=== PATIENT | female | born 1975 | race Caucasian/White ===

== ENCOUNTER 2016-07-14 01:51 | Emergency (ER) | payer BC ==
[~2016-07-14 01:51] MED LIST: ALPRAZOLAM0.5 MG PO; ATENOLOL100 MG PO; HYCET1 ML PO; OMEPRAZOLE20 M1 PO; ZOLOFT100 MG PO
--- NOTE | 2016-07-14 03:47 | ED CLINICAL REPORT ---
Clinical Report - Physicians/Mid Levels [facility] [address] [place] [address] 07/14/2016 1:50 Patient: SUELLEN PULIDO Time Seen: 0212. Arrived- By private vehicle. Historian- patient. HISTORY OF PRESENT ILLNESS Chief Complaint: SKIN RASH. This started today and is still present and worsening. It was abrupt in onset and has been constant but is not gone now. It is described as itchy. It has been generalized in location. No cause has been identified. No recent medication. (hx of breast cancer. being treated with chemo. oncologist is Dr. De Santiago. 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 reports having rash several days afterwards. does not appear to be vescicular.). Similar symptoms previously: None. Recent medical care: Not recently seen/assessed. REVIEW OF SYSTEMS No fever, difficulty breathing, eye irritation, chest pain or abdominal pain. No nausea or vomiting. All systems otherwise negative, except as recorded above. PAST HISTORY See nurses notes. Tetanus immunization status is up-to-date. SOCIAL HISTORY Never smoker. No alcohol use or drug use. No recent travel. Is a local resident. ADDITIONAL NOTES The nursing notes have been reviewed. PHYSICAL EXAM Vital Signs: 07/14/2016 01:56 BP: 143/77. HR: 67. RR: 16. O2 saturation: 98%. Temp: 98.3 F. Pain level now: 0/10. Oxygen saturation normal. Appearance: Alert. Oriented X3. No acute distress. Eyes: Pupils equal, round and reactive to light. Conjunctivae and eyelids normal. ENT: Ears normal. Nose normal. Pharynx normal. Neck: Neck supple. CVS: Normal heart rate and rhythm. Heart sounds normal. Respiratory: No respiratory distress. Breath sounds normal. Chest nontender. Abdomen: Nontender. No organomegaly. Skin: (maculopapular rash with poorly demarcated edges and no vesicles located primarily on the scalp and generally thins out distally. They're blanchable. Appear to be lessening at the scalp. No satellite lesions. No involvement of mucous membranes her palms and soles.). Extremities: Normal external inspection. Extremities nontender. LABS, X-RAYS, AND EKG Laboratory Tests: CBC w Diff: (MILI: 07/14/2016 02:10) ( MsgRcvd 07/14/2016 03:19) Final results Test Result Flag Units (Reference) WHITE BLOOD COUNT 31.0 *H K/uL (4.5-11.5) CRITICAL RESULTS CALLEDCalled to RAJ 07/14/16 0235Were 2 patient identifiers used? YWas the result read back? Y RED BLOOD COUNT 4.25 M/uL (4.00-5.20) HEMOGLOBIN 10.2 L gm/dL (12.0-16.0) HEMATOCRIT 31.2 L % (36.0-46.0) MEAN CELL VOLUME 74 L fL (80-100) MEAN CORPUSCULAR HGB 24 L pg (26-34) MEAN CORPUSCULAR HGB CONC 33 g/dL (31-37) RED CELL DISTRIBUTION WIDTH 35.4 H % (11.6-14.8) PLATELET COUNT 171 K/uL (150-400) POLY % 66 % (50-75) BAND % 18 H % (0-8) LYMPH 13 L % (25-40) MONO 3 % (3-14) EOSINOPHIL % 0 % (0-4) BASOPHIL % 0 % (0-2) METAMYELOCYTE % 0 % (0-1) MYELOCYTE 0 % (0-1) OTHER CELL TYPE 0 RBC MORPHOLOGY 2+ ANISOCYTOSIS PT with INR: (MILI: 07/14/2016 02:10) ( PagRcvd 07/14/2016 02:40) Final results Test Result Flag Units (Reference) INR 1.0 (0.8-1.2) Low Intensity Therapy: INR 1.5-2.0 PT range 18.5-23.1Mod.Intensity Therapy: INR 2.0-3.0 PT range 23.1-31.5High Intensity Therapy: INR 2.5-3.5 PT range 27.4-35.5High Intensity Therapy 2: INR 3.0-4.0 PT range 31.5-39.3 APTT 27 SECONDS (24-34) CMP: (MILI: 07/14/2016 02:10) ( MsgRcvd 07/14/2016 02:45) Final results Test Result Flag Units (Reference) GLUCOSE 104 mg/dL (70-110) BUN 11 mg/dL (7-18) CREATININE 0.9 mg/dL (0.6-1.3) Estimated GFR >60 mL/min Estimated GFR- >60 mL/min Note: Persistent reduction over 3 months in eGFR<60 mL/min/1.73 m2 defines CKD. Patients with eGFR values>=60 mL/min/1.73 m2 may also have CKD if evidence ofpersistent proteinuria. Additional information may be foundat www.kidney.org. SODIUM 144 mmol/L (136-145) POTASSIUM 3.5 mmol/L (3.5-5.1) CHLORIDE 107 mmol/L (98-107) CARBON DIOXIDE 25 mmol/L (21-32) CALCIUM 9.0 mg/dL (8.5-10.1) TOTAL PROTEIN 6.4 g/dL (6.4-8.2) ALBUMIN 3.5 g/dL (3.3-5.0) BILIRUBIN, TOTAL 0.5 mg/dL (0.0-1.0) ALKALINE PHOSPHATASE 142 H U/L (46-116) AST (SGOT) 26 U/L (15-37) ALT (SGPT) 36 U/L (12-78) . PROGRESS AND PROCEDURES Course of Care: he patient is a pleasant 40-year-old female presenting for evaluation of rash. Patient with recent exposure to shingles as well as history of recent treatment with chemotherapy for breast cancer. Because the patient's past medical history of breast cancer and being on immunosuppressive agents, would be concerned for potential opportunistic type of infection particularly with the exposure to shingles. Laboratory studies will be ordered for evaluation of any potential metabolic derangements from chemotherapy or related abnormalityfrom the rash. Patient is agreeable to the treatment plan. Hydroxyzine has been ordered for the patient's itching. Appears to be allergic in nature. Less concern for shingles based on the description of the rash. The patient's workup was remarkable for the findings above. Patient with improved hemoglobin and hematocrit based on prior hemoglobins and hematocrits. Patient white blood count noted to be 31. Patient on Neupogen and likely the result of the Neupogen. Consult was placed to patient's oncologist. Had discussion with the patient's oncologist in regards to the patient's rash here in the emergency department and potential etiologies for the rash. We had decided that the benefits outweighed outweigh the risks for treating with acyclovir or valacyclovir for potential herpes zoster. Patient is agreeable to treatment plan. Also had a discussion with patient and possible allergic-type reaction to recent exposures of medications or allergens. No signs of anaphylaxis at this time. Patient has been otherwise appropriate while here in the emergency department. Symptoms had slightly improved while here. Patient continues to be nontoxic and in no acute distress. Discussed with patient her workup here in the emergency department included home care, follow-up, and return precautions. All questions have been answered. The patient expressed understanding of these instructions and was agreeable to them. Valacyclovir has been ordered in place of acyclovir as the dosing is less frequent and will likely result in better patient compliance. Consult obtained from oncology. Dr. De Santiago. Disposition: Discharged. Condition: good. CLINICAL IMPRESSION 07/14/2016 01:56 BP: 143/77. HR: 67. RR: 16. O2 saturation: 98%. Temp: 98.3 F. Pain level now: 0/10. Blood pressure normal. Oxygen saturation normal. Chicken pox (acute). INSTRUCTIONS Warnings: GENERAL WARNINGS: Return or contact your physician immediately if your condition worsens or changes unexpectedly, if not improving as expected, or if other problems arise. Specifically return if pain, vomiting, bleeding, breathing difficulty or fever. Your Current Medications: CONTINUE TAKING THE FOLLOWING MEDICATIONS: Atenolol Oral. Omeprazole Oral. Zoloft Oral. Prescription Medications: Valtrex 1000 mg: take 1 tab orally every 8 hours for 10 days. No refills. Substitution is permissible. (Disp 30 each) Hydroxyzine 50 mg: take 1 orally every 8 hours as needed for itching. Dispense thirty (30). No refill. Follow-up: Return to the emergency department as needed. Follow up with an oncologist in one week. Reason for referral: recheck today's concerns. Summary of care provided to patient via paper. Follow up with your doctor in three days. Reason for referral: recheck today's concerns. Summary of care provided to patient via paper. Screening today revealed the patient's blood pressure to be in the normal range. The patient should follow up with a primary care provider for blood pressure management. Understanding of the discharge instructions verbalized by patient. (Electronically signed by Maximiliano Sauceda Dr. 07/15/2016 7:35)
--- NOTE | 2016-07-14 03:47 | ED NURSING NOTES ---
Clinical Report - Nurses [facility] [address] [place] [address] 07/14/2016 1:50 [id number] Triage time 01:57. Acuity: LEVEL 4. Chief Complaint: SKIN RASH. --02:02 TonyaB, R.N. 01:56 07/14/16. BP: 143/77. HR: 67. RR: 16. O2 saturation: 98%. Temp: 98.3 F. Pain level now: 010. --02:02 TonyaB, R.N. Weight: 113.3 kg. Height/Length: 65 inches. BMI: 41.6. --01:59 TonyaB, R.N. Medications Zoloft Oral. --01:59 TonyaB, R.N. Atenolol Oral. --01:59 TonyaB, R.N. Omeprazole Oral. --02:00 TonyaB, R.N. Allergies Morphine and Related. --01:57 TonyaB, R.N. History Arrived by private vehicle. Historian: patient. This started today. It is described as itchy. 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 SOCIAL HX: Never smoker. No alcohol use or drug use. She has not traveled outside the [place] The patient was exposed to chicken pox. SELF HARM ASSESSMENT: A self harm assessment was performed. The patient answered "no" to the question "Have you recently felt down, depressed, or hopeless?", "Have you noticed less interest or pleasure in doing things?", "Do you have thoughts of harming or killing yourself?", "Are you here because you tried to hurt yourself?", "Have you ever tried to hurt yourself before today?", "Have you recently had thoughts about harming or killing others?" and "Do you have any dangerous items in your possession?". FALL RISK ASSESSMENT: Fall risk assessment completed. No fall risk identified. NUTRITIONAL RISK ASSESSMENT: The nutritional risk assessment revealed no deficiencies. FUNCTIONAL ASSESSMENT: Functional assessment: no impairments noted. LEARNING NEEDS ASSESSMENT: The learning needs assessment revealed no barriers. SKIN INTEGRITY ASSESSMENT: Skin integrity risk assessment completed. No skin integrity risk identified. --02:02 Randolph Hall PROBLEMS: Cancer. Anxiety Reaction. Apnea. Gastroesophageal Reflux Disease. Hypertension. --01:59 Bijal Hall. ADDITIONAL SURGERIES: Appendectomy. . Lumpectomy of breast. --01:58 Randolph Hall Interventions ID band on patient. To treatment room. --02:02 Randolph Hall PHYSICAL ASSESSMENT Ambulatory to room. GENERAL / NEURO / PSYCH: Alert. The patient does not appear to be in acute distress. Oriented X 4. HEENT: Pupils equal, round and reactive to light. Mucous membranes are pink. RESPIRATORY: Respirations not labored. Breath sounds within normal limits. CVS: Capillary refill less than 2 seconds. Pulses within normal limits. GI / : Abdomen nontender. SKIN: Skin rash present. --02:03 Randolph Hall NURSING PROGRESS NOTES Patient identifiers checked. Call light placed in reach. Side rails up. Bed placed in lowest position. Brakes of bed on. --02:03 Randolph Hall 02:19 07/14/2016 Site #1 started via IV in the left antecubital space with an 20g angiocath, with aseptic technique and good blood return; one attempt. Blood drawn: rainbow set. Labeled in the presence of the patient and sent to the lab. Saline lock flushed with 10 mL saline. --02:19 Randolph Hall 02:47 07/14/2016 Hydroxyzine (HydrOXYzine HCl) PO 50 mg given. Allergies verified, confirmed 5 rights and sedative warning given to the patient. --02:47 Randolph Hall 03:52 07/14/2016 Acyclovir PO 800 mg given. Allergies verified and confirmed 5 rights. --03:52 Randolph Hall DISPOSITION / DISCHARGE 03:57 07/14/2016 Site #1 removed upon discharge. Catheter intact. Bandage applied. --03:57 Randolph Hall Departure time: 03:58. Condition at departure: improved. No learning barriers present. Discharge instructions provided and reviewed with the patient. Reviewed medication(s) side effects, precautions, dosing and course information. Prescription(s) given to the patient. Patient verbalized understanding. Written instructions provided in Faroese. No warning instructions, treatment instructions, referrals given to the patient, diet instructions or activity restrictions. No note given, follow up contact number given or stop smoking instructions. The patient was discharged by the physician. She was discharged home. She left the Emergency Department ambulatory and via private vehicle. Patient driving. FALL RISK ASSESSMENT: Fall risk assessment completed. No fall risk identified. --03:58 Randolph Hall 03:57 07/14/16. BP: 138/75. HR: 72. RR: 17. O2 saturation: 99%. Temp: deferred. Pain level now: 0/10. --03:58 Randolph Hall Locked/Released at 07/14/2016 3:58 by Randolph Hall
--- NOTE | 2016-07-14 03:47 | ED NURSING NOTES ---
Clinical Report - Nurses [facility] [address] [place] [address] 07/14/2016 1:50 [id number] TRI[facility] Triage time 01:57. Acuity: LEVEL 4. Chief Complaint: SKIN RASH. --02:02 TonyaB, R.N. 01:56 07/14/16. BP: 143/77. HR: 67. RR: 16. O2 saturation: 98%. Temp: 98.3 F. Pain level now: 010. --02:02 TonyaB, R.N. Weight: 113.3 kg. Height/Length: 65 inches. BMI: 41.6. --01:59 TonyaB, R.N. Medications Zoloft Oral. --01:59 TonyaB, R.N. Atenolol Oral. --01:59 TonyaB, R.N. Omeprazole Oral. --02:00 TonyaB, R.N. Allergies Morphine and Related. --01:57 TonyaB, R.N. History Arrived by private vehicle. Historian: patient. This started today. It is described as itchy. 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 SOCIAL HX: Never smoker. No alcohol use or drug use. She has not traveled outside the [place] The patient was exposed to chicken pox. SELF HARM ASSESSMENT: A self harm assessment was performed. The patient answered "no" to the question "Have you recently felt down, depressed, or hopeless?", "Have you noticed less interest or pleasure in doing things?", "Do you have thoughts of harming or killing yourself?", "Are you here because you tried to hurt yourself?", "Have you ever tried to hurt yourself before today?", "Have you recently had thoughts about harming or killing others?" and "Do you have any dangerous items in your possession?". FALL RISK ASSESSMENT: Fall risk assessment completed. No fall risk identified. NUTRITIONAL RISK ASSESSMENT: The nutritional risk assessment revealed no deficiencies. FUNCTIONAL ASSESSMENT: Functional assessment: no impairments noted. LEARNING NEEDS ASSESSMENT: The learning needs assessment revealed no barriers. SKIN INTEGRITY ASSESSMENT: Skin integrity risk assessment completed. No skin integrity risk identified. --02:02 Randolph Hall PROBLEMS: Cancer. Anxiety Reaction. Apnea. Gastroesophageal Reflux Disease. Hypertension. --01:59 Bijal Hall. ADDITIONAL SURGERIES: Appendectomy. . Lumpectomy of breast. --01:58 Randolph Hall Interventions ID band on patient. To treatment room. --02:02 Randolph Hall PHYSICAL ASSESSMENT Ambulatory to room. GENERAL / NEURO / PSYCH: Alert. The patient does not appear to be in acute distress. Oriented X 4. HEENT: Pupils equal, round and reactive to light. Mucous membranes are pink. RESPIRATORY: Respirations not labored. Breath sounds within normal limits. CVS: Capillary refill less than 2 seconds. Pulses within normal limits. GI / : Abdomen nontender. SKIN: Skin rash present. --02:03 Randolph Hall NURSING PROGRESS NOTES Patient identifiers checked. Call light placed in reach. Side rails up. Bed placed in lowest position. Brakes of bed on. --02:03 Randolph Hall 02:19 07/14/2016 Site #1 started via IV in the left antecubital space with an 20g angiocath, with aseptic technique and good blood return; one attempt. Blood drawn: rainbow set. Labeled in the presence of the patient and sent to the lab. Saline lock flushed with 10 mL saline. --02:19 Randolph Hall 02:47 07/14/2016 Hydroxyzine (HydrOXYzine HCl) PO 50 mg given. Allergies verified, confirmed 5 rights and sedative warning given to the patient. --02:47 Randolph Hall 03:52 07/14/2016 Acyclovir PO 800 mg given. Allergies verified and confirmed 5 rights. --03:52 Randolph Hall DISPOSITION / DISCHARGE 03:57 07/14/2016 Site #1 removed upon discharge. Catheter intact. Bandage applied. --03:57 Randolph Hall Departure time: 03:58. Condition at departure: improved. No learning barriers present. Discharge instructions provided and reviewed with the patient. Reviewed medication(s) side effects, precautions, dosing and course information. Prescription(s) given to the patient. Patient verbalized understanding. Written instructions provided in Macedonian. No warning instructions, treatment instructions, referrals given to the patient, diet instructions or activity restrictions. No note given, follow up contact number given or stop smoking instructions. The patient was discharged by the physician. She was discharged home. She left the Emergency Department ambulatory and via private vehicle. Patient driving. FALL RISK ASSESSMENT: Fall risk assessment completed. No fall risk identified. --03:58 Randolph Hall 03:57 07/14/16. BP: 138/75. HR: 72. RR: 17. O2 saturation: 99%. Temp: deferred. Pain level now: 0/10. --03:58 Randolph Hall Locked/Released at 07/14/2016 3:58 by Randolph Hall
--- NOTE | 2016-07-14 03:47 | ED ORDER SUMMARY ---
..... Patient: SUELLEN PULIDO OrderSheet [facility] VisitID: [id number] [place] [address] 40y, F Registration Date/Time: 07/14/2016 ORDER SHEET Weight: 113.3 kg Allergies: Morphine and Related GENERAL ORDERS: CBC w Diff Urgent (02:07/14/2016 Grayson Thomas) (Ack 2:24 IJurca ER Tech1) (2:43 TBowen R.N.) CMP Urgent (02:07/14/2016 Grayson Thomas) (Ack 2:24 IJurca ER Tech1) (2:43 TBowen R.N.) PT with INR Urgent (02:07/14/2016 Grayson Thomas) (Ack 2:24 IJurca ER Tech1) (2:43 TBowen R.N.) PTT Urgent (02:07/14/2016 Grayson Thomas) (Ack 2:24 IJurca ER Tech1) (2:43 TBowen R.N.) UA-Culture if indicated Urgent (02:07/14/2016 Grayson Thomas) (Ack 2:24 IJurcshanika ER Tech1) Urine Urgent (02:07/14/2016 Grayson Thomas) (Ack 2:24 IJurcshanika ER Tech1) Pulse oximeter (02:07/14/2016 Grayson Thomas) (Ack 2:24 IJurca ER Tech1) (2:43 TBowen R.N.) MEDICATION ORDERS: HydrOXYzine PO 50 mg (NOW) (02:22 07/14/2016 Grayson Thomas) (2:47 TBowen R.N.) Acyclovir PO 800 mg (NOW) (03:42 07/14/2016 Grayson Thomas) (3:52 TBowen R.N.) IV FLUIDS: IV Saline Lock (02:07/14/2016 Grayson Thomas) (2:44 TBowen R.N.) ORDER SHEET NOTES: [Electronically signed by Katelin Huggins R.N. (03:58 07/14/2016)] [Electronically signed by Maximiliano Sauceda Dr. (07:35 07/15/2016)] [Electronically locked/signed by Katelin Huggins R.N. (03:58 07/14/2016)]
--- NOTE | 2016-07-14 03:47 | ED ORDER SUMMARY ---
..... Patient: SUELLEN PULIDO OrderSheet [facility] VisitID: [id number] [place] [address] 40y, F Registration Date/Time: 07/14/2016 ORDER SHEET Weight: 113.3 kg Allergies: Morphine and Related GENERAL ORDERS: CBC w Diff Urgent (02:07/14/2016 Grayson Thomas) (Ack 2:24 IJurca ER Tech1) (2:43 TBowen R.N.) CMP Urgent (02:07/14/2016 Grayson Thomas) (Ack 2:24 IJurca ER Tech1) (2:43 TBowen R.N.) PT with INR Urgent (02:07/14/2016 Grayson Thomas) (Ack 2:24 IJurca ER Tech1) (2:43 TBowen R.N.) PTT Urgent (02:07/14/2016 Grayson Thomas) (Ack 2:24 IJurca ER Tech1) (2:43 TBowen R.N.) UA-Culture if indicated Urgent (02:07/14/2016 Grayson Thomas) (Ack 2:24 IJurcshanika ER Tech1) Urine Urgent (02:07/14/2016 Grayson Thomas) (Ack 2:24 IJurcshanika ER Tech1) Pulse oximeter (02:07/14/2016 Grayson Thomas) (Ack 2:24 IJurca ER Tech1) (2:43 TBowen R.N.) MEDICATION ORDERS: HydrOXYzine PO 50 mg (NOW) (02:22 07/14/2016 Grayson Thomas) (2:47 TBowen R.N.) Acyclovir PO 800 mg (NOW) (03:42 07/14/2016 Grayson Thomas) (3:52 TBowen R.N.) IV FLUIDS: IV Saline Lock (02:07/14/2016 Grayson Thomas) (2:44 TBowen R.N.) ORDER SHEET NOTES: [Electronically signed by Katelin Huggins R.N. (03:58 07/14/2016)] [Electronically signed by Maximiliano Sauceda Dr. (07:35 07/15/2016)] [Electronically locked/signed by Katelin Huggins R.N. (03:58 07/14/2016)]
--- NOTE | 2016-07-15 07:35 | ED MED RECONCILIATION SUMMARY ---
Patient: SUELLEN PULIDO Medication Reconciliation Report [facility] VisitID: [id number] [address] [place] [address] 40y, F Registration Date/Time: 07/14/2016 Weight: 113.3 kg Height/Length: 65 in. BMI: 41.6 ALLERGIES: Morphine and Related The patient's Home Medications are listed below: CONTINUE TAKING THE FOLLOWING MEDICATIONS: Atenolol Oral Omeprazole Oral Zoloft Oral The source(s) of the original Home Medication information: Not obtained. The following Medications were given to the patient in the Emergency Department: Hydroxyzine [PO] PO 50 mg, administered: 07/14/2016 2:47:00 AM Acyclovir [PO] PO 800 mg, administered: 07/14/2016 3:52:00 AM The following Medications were prescribed to the patient: Valtrex 1000 mg: take 1 tab orally every 8 hours for 10 days. No refills. Substitution is permissible.(Disp 30 each) -- Maximiliano Sauceda Dr. Hydroxyzine 50 mg: take 1 orally every 8 hours as needed for itching. Dispense thirty (30). No refill. -- Maximiliano Sauceda Dr.
--- NOTE | 2016-07-15 07:35 | ED MAR SUMMARY ---
..... Medication Administration Record [facility] [address] [place] [address] Patient: SUELLEN PULIDO Visit ID: [id number] 40y, F Weight: 113.3 kg Height/Length: 65 in BMI: 41.6 ALLERGIES: Morphine and Related Given 02:47 07/14/2016 Isabel RRyan Medication Administered: HYDROXYZINE [PO] (HYDROXYZINE HCL), Dose: 50 mg PO. Medication Ordered: HydrOXYzine PO 50 mg (NOW). Given 03:52 07/14/2016 Isabel R.N. Medication Administered: ACYCLOVIR [PO], Dose: 800 mg PO. Medication Ordered: Acyclovir PO 800 mg (NOW).
--- NOTE | 2016-07-15 07:35 | ED DISCHARGE INSTRUCTIONS ---
Patient: SUELLEN PULIDO General Instructions [facility] VisitID: [id number] [place] [address] 40y, F Registration Date/Time: 07/14/2016 07/14/2016 01:56 BP: 143/77. HR: 67. RR: 16. O2 saturation: 98%. Temp: 98.3 F. Pain level now: 0/10. Blood pressure normal. Oxygen saturation normal. Chicken pox (acute). INSTRUCTIONS Warnings: GENERAL WARNINGS: Return or contact your physician immediately if your condition worsens or changes unexpectedly, if not improving as expected, or if other problems arise. Specifically return if pain, vomiting, bleeding, breathing difficulty or fever. Your Current Medications: CONTINUE TAKING THE FOLLOWING MEDICATIONS: Atenolol Oral. Omeprazole Oral. Zoloft Oral. Prescription Medications: Valtrex 1000 mg: take 1 tab orally every 8 hours for 10 days. No refills. Substitution is permissible. (Disp 30 each) Hydroxyzine 50 mg: take 1 orally every 8 hours as needed for itching. Dispense thirty (30). No refill. Follow-up: Return to the emergency department as needed. Follow up with an oncologist in one week. Reason for referral: recheck today's concerns. Summary of care provided to patient via paper. Follow up with your doctor in three days. Reason for referral: recheck today's concerns. Summary of care provided to patient via paper. Screening today revealed the patient's blood pressure to be in the normal range. The patient should follow up with a primary care provider for blood pressure management. Understanding of the discharge instructions verbalized by patient. ADDITIONAL INFORMATION Chickenpox Chickenpox is a very contagious illness. It is due to a virus and causes fever and an itchy red rash of small blisters that form all over the body. Blisters may appear on the scalp, face, and in the mouth. Females may also get blisters in the vaginal area. New blisters will appear over the first several days. The contagious period ends when all blisters have crusted over (usually about one week after the illness begins). Most children older than one year and adults who have never had chicken pox can be vaccinated to prevent this infection. Home Care: You may use acetaminophen (Tylenol) or ibuprofen (Motrin, Advil) to control pain and fever, unless another medicine was prescribed for this. [ NOTE: If your child has chronic liver or kidney disease or ever had a stomach ulcer or GI bleeding, talk with your doctor before using these medicines.] (Aspirin should never be used in anyone under 18 years of age who is ill with a fever. It may cause severe liver damage.) To relieve itching and pain, make a solution of cool water mixed with cornstarch, baking soda, Aveeno Oatmeal, or Domeboro powder (available without a prescription). Apply the solution as a compress to the area. This will soothe the skin. Calamine or Caladryl lotion may help. Oral Benadryl (diphenhydramine) is an antihistamine available at drug and grocery stores. Unless a prescription antihistamine was given, Benadryl may be used to reduce itching if large areas of the skin are involved. Use lower doses during the daytime and higher doses at bedtime since the drug may make your childsleepy. Claritin (loratidine) is an antihistamine that causes less drowsiness and is a good alternative for daytime use. Bathe daily and wash the rash with soap to prevent infection. Trim your child's fingernails to minimize skin damage from scratching. Scratching the sores may leave scars. Keep your child home from school or day-care for at least one week or until all blisters have formed a crust. Follow Up with your doctor as directed by our staff, or if the above measures do not bring relief. Get Prompt Medical Attention if any of the following occur: Signs of skin infection: (colored drainage from the sores, increasing redness or tenderness of the sores) Excessive vomiting Severe headache, stiff neck or confusion Cough with trouble breathing or fast breathing (6 wk - 2 yr: over 45 breaths/min.; 3-6 yr: over 35 breaths/min.; 7-10 yrs: over 30 breaths/min.; more than 10 yrs: over 25 breaths/min.) Joint pain, redness or swelling Dark urine, yellow skin or eyes Leg weakness or difficulty walking Fever of 100.4F (38C) oral or 101.4F (38.5C) rectal or higher, not better with fever medication Valacyclovir Hydrochloride Oral tablet What is this medicine? VALACYCLOVIR (kailyn bry cabrera) is an antiviral medicine. It is used to treat or prevent infections caused by certain kinds of viruses. Examples of these infections include herpes and shingles. This medicine will not cure herpes. How should I use this medicine? Take this medicine by mouth with a glass of water. Follow the directions on the prescription label. You can take this medicine with or without food. Take your doses at regular intervals. Do not take your medicine more often than directed. Finish the full course prescribed by your doctor or health wound care technician even if you think your condition is better. Do not stop taking except on the advice of your doctor or health wound care technician. Talk to your medical front desk specialist regarding the use of this medicine in children. While this drug may be prescribed for children as young as 2 years for selected conditions, precautions do apply. What side effects may I notice from receiving this medicine? Side effects that you should report to your doctor or health wound care technician as soon as possible: allergic reactions like skin rash, itching or hives, swelling of the face, lips, or tongue aggressive behavior confusion hallucinations problems with balance, talking, walking stomach pain tremor trouble passing urine or change in the amount of urine Side effects that usually do not require medical attention (report to your doctor or health wound care technician if they continue or are bothersome): dizziness headache nausea, vomiting What may interact with this medicine? cimetidine probenecid What if I miss a dose? If you miss a dose, take it as soon as you can. If it is almost time for your next dose, take only that dose. Do not take double or extra doses. Where should I keep my medicine? Keep out of the reach of children. Store at room temperature between 15 and 25 degrees C (59 and 77 degrees F). Keep container tightly closed. Throw away any unused medicine after the expiration date. What should I tell my health care provider before I take this medicine? They need to know if you have any of these conditions: acquired immunodeficiency syndrome (AIDS) any other condition that may weaken the immune system bone marrow or kidney transplant kidney disease an unusual or allergic reaction to valacyclovir, acyclovir, ganciclovir, valganciclovir, other medicines, foods, dyes, or preservatives or trying to get breast-feeding What should I watch for while using this medicine? Tell your doctor or health wound care technician if your symptoms do not start to get better after 1 week. This medicine works best when taken early in the course of an infection, within the first 72 hours. Begin treatment as soon as possible after the first signs of infection like tingling, itching, or pain in the affected area. It is possible that genital herpes may still be spread even when you are not having symptoms. Always use safer sex practices like condoms made of latex or polyurethane whenever you have sexual contact. You should stay well hydrated while taking this medicine. Drink plenty of fluids. Hydroxyzine Pamoate Oral capsule What is this medicine? HYDROXYZINE (debbie DROX i zeen) is an antihistamine. This medicine is used to treat allergy symptoms. It is also used to treat anxiety and tension. This medicine can be used with other medicines to induce sleep before surgery. How should I use this medicine? Take this medicine by mouth with a full glass of water. Follow the directions on the prescription label. You may take this medicine with food or on an empty stomach. Take your medicine at regular intervals. Do not take your medicine more often than directed. Talk to your medical front desk specialist regarding the use of this medicine in children. Special care may be needed. While this drug may be prescribed for children as young as 6 years of age for selected conditions, precautions do apply. Patients over 65 years old may have a stronger reaction and need a smaller dose. What side effects may I notice from receiving this medicine? Side effects that you should report to your doctor or health wound care technician as soon as possible: fast or irregular heartbeat difficulty passing urine seizures slurred speech or confusion tremor Side effects that usually do not require medical attention (report to your doctor or health wound care technician if they continue or are bothersome): constipation drowsiness fatigue headache stomach upset What may interact with this medicine? alcohol barbiturate medicines for sleep or seizures medicines for colds, allergies medicines for depression, anxiety, or emotional disturbances medicines for pain medicines for sleep muscle relaxants What if I miss a dose? If you miss a dose, take it as soon as you can. If it is almost time for your next dose, take only that dose. Do not take double or extra doses. Where should I keep my medicine? Keep out of the reach of children. Store at room temperature between 15 and 30 degrees C (59 and 86 degrees F). Keep container tightly closed. Throw away any unused medicine after the expiration date. What should I tell my health care provider before I take this medicine? They need to know if you have any of these conditions: any chronic illness difficulty passing urine glaucoma heart disease kidney disease liver disease lung disease an unusual or allergic reaction to hydroxyzine, cetirizine, other medicines, foods, dyes, or preservatives or trying to get breast-feeding What should I watch for while using this medicine? Tell your doctor or health wound care technician if your symptoms do not improve. You may get drowsy or dizzy. Do not drive, use machinery, or do anything that needs mental alertness until you know how this medicine affects you. Do not stand or sit up quickly, especially if you are an older patient. This reduces the risk of dizzy or fainting spells. Alcohol may interfere with the effect of this medicine. Avoid alcoholic drinks. Your mouth may get dry. Chewing sugarless gum or sucking hard candy, and drinking plenty of water may help. Contact your doctor if the problem does not go away or is severe. This medicine may cause dry eyes and blurred vision. If you wear contact lenses you may feel some discomfort. Lubricating drops may help. See your eye doctor if the problem does not go away or is severe. If you are receiving skin tests for allergies, tell your doctor you are using this medicine. You have been given the following additional information: Chickenpox Valacyclovir Hydrochloride Oral tablet Hydroxyzine Pamoate Oral capsule (Electronically signed by Maximiliano Sauceda Dr. 07/15/2016 7:35)
--- NOTE | 2016-07-15 07:35 | ED MED RECONCILIATION SUMMARY ---
Patient: SUELLEN PULIDO Medication Reconciliation Report [facility] VisitID: [id number] [address] [place] [address] 40y, F Registration Date/Time: 07/14/2016 Weight: 113.3 kg Height/Length: 65 in. BMI: 41.6 ALLERGIES: Morphine and Related The patient's Home Medications are listed below: CONTINUE TAKING THE FOLLOWING MEDICATIONS: Atenolol Oral Omeprazole Oral Zoloft Oral The source(s) of the original Home Medication information: Not obtained. The following Medications were given to the patient in the Emergency Department: Hydroxyzine [PO] PO 50 mg, administered: 07/14/2016 2:47:00 AM Acyclovir [PO] PO 800 mg, administered: 07/14/2016 3:52:00 AM The following Medications were prescribed to the patient: Valtrex 1000 mg: take 1 tab orally every 8 hours for 10 days. No refills. Substitution is permissible.(Disp 30 each) -- Maximiliano Sauceda Dr. Hydroxyzine 50 mg: take 1 orally every 8 hours as needed for itching. Dispense thirty (30). No refill. -- Maximiliano Sauceda Dr.
--- NOTE | 2016-07-15 07:35 | ED MAR SUMMARY ---
..... Medication Administration Record [facility] [address] [place] [address] Patient: SUELLEN PULIDO Visit ID: [id number] 40y, F Weight: 113.3 kg Height/Length: 65 in BMI: 41.6 ALLERGIES: Morphine and Related Given 02:47 07/14/2016 Isabel RRyan Medication Administered: HYDROXYZINE [PO] (HYDROXYZINE HCL), Dose: 50 mg PO. Medication Ordered: HydrOXYzine PO 50 mg (NOW). Given 03:52 07/14/2016 Isabel R.N. Medication Administered: ACYCLOVIR [PO], Dose: 800 mg PO. Medication Ordered: Acyclovir PO 800 mg (NOW).
== END 2016-07-14 04:00 | disposition home or self-care (01) ==
LOC: ED SRH 01:51
DX: B01.9 Varicella without complication (principal); Z79.899 Other long term (current) drug therapy; C50.919 Malignant neoplasm of unspecified site of unspecified female breast; I10 Essential (primary) hypertension; K21.9 Gastro-esophageal reflux disease without esophagitis
CPT/HCPCS: 90100; 91643; 94001; 94060; 95059